=== PATIENT | male | born 1955 | race Hispanic/Latino ===

== ENCOUNTER → 2022-06-11 | Outpatient (CLI) | payer MEDICARE ==
[~2022-06-11] MED LIST: ATORVASTATIN CA10 MG PO; BACLOFEN10 MG PO; LISINOPRIL10 MG PO; METFORMIN HCL500 M2 PO; VENTOLIN HFA18 GM INH
== END ==
LOC: RAD 07:56
PROVIDERS: ATTEND Urology
DX: N02.0 Recurrent and persistent hematuria with minor glomerular abnormality (principal)
CPT/HCPCS: 74018